=== PATIENT | male | born 1965 | race African-American/Black ===

== ENCOUNTER 2020-12-28 19:33 | Emergency (ER) | payer SELFPAY ==
[~2020-12-28] VITALS: Ht 188 cm; Wt 79.4 kg
[2020-12-28] MEDS ORDERED: HYDROCODONE/APAP 5MG-325MG TAB PO STA (19:50)
[2020-12-28] MEDS ORDERED: TYLENOL # 31 EA PO (21:22)
[2020-12-28 21:27] VITALS: BP 137/75
== END 2020-12-28 21:29 | disposition home or self-care (01) ==
LOC: ER 20:08
DX: M25.522 Pain in left elbow (principal)
CPT/HCPCS: 93005; 99284